=== PATIENT | male | born 1990 | race Caucasian/White ===

== ENCOUNTER 2018-07-11 16:32 | Emergency (ER) | payer BC ==
--- NOTE | 2018-07-11 17:03 | EDPHY ---
General Time Seen by Provider: 07/11/18 17:03 Narrative: CLINICAL IMPRESSION: Pyelonephritis ASSESSMENT/PLAN: Patient is a 28-year-old male with a significant medical history of hypertension who presents with dysuria, urinary urgency and right flank pain. Patient is afebrile, nontoxic appearing he is in no distress on arrival. His abdomen was soft mild tenderness to palpation in the generalized lower abdomen, no peritoneal signs and no evidence of a surgical abdomen; right CVA tenderness. CBC revealed mild leukocytosis of 11,000, vital signs were reviewed and there was no evidence of sepsis or serious bacterial illness. BMP revealed no significant metabolic abnormality or СВЕТЛАНА. UA with 10-15 RBCs, 50-182 WBCs with 1+ bacteria, urine sent for culture. Also obtained dirty urine for evaluation of GC; low suspicion as his last GC early June was negative. CT abdomen and pelvis w/out revealed mild proximal ureter dilatation on the right side without stranding, no evidence of stone; findings most suggestive of pyelonephritis. History and physical examination is most consistent with acute pyelonephritis. Patient was given 1 L of IV fluids, Rocephin, Dilaudid and Toradol with improvement of symptoms in the emergency department. At this time I have considered other etiologies of his pain to include appendicitis, cholecystitis, pancreatitis, perforated viscus, diverticulitis, hernia, AAA, mesenteric ischemia, herpes zoster or additional emergent intra-abdominal process however low clinical suspicion. Query possible vesicoureteral reflux as one possible etiology. On repeat examination and prior to discharge the patient reports that he is feeling better, his abdomen remained soft and nontender without evidence of a surgical abdomen. The patient is well established with their primary care provider although we do not have 1 listed, he was provided a Urology referral and he will call 1st thing Saturday morning to schedule an appointment. Ceftin for the next 7 days. Conservative return precautions discussed- patient will return for development of fever, persistent nausea or vomiting, signs of dehydration, chest pain, shortness of breath, abdominal pain, worsening or uncontrolled flank pain, urinary retention, dysuria, hematuria or for any other concerning symptom. The patient verbalizes understanding and he is in agreement with this plan. DIFFERENTIAL DX: Flank pain including but not limited to musculoskeletal causes, kidney stone, pyelonephritis, shingles, and intra-abdominal causes such as diverticulitis, appendicitis, chlamydia/gonorrhea, prostatitis, epididymitis, urinary tract obstruction, vesicoureteral reflux. ED COURSE: 1715: Case discussed with Dr. Shafer 1733: Discussed case with radiologist, mild dilatation of the proximal right ureter, no evidence of renal/ureteral calculi or other obstructive uropathy. Findings are most suggestive of pyelonephritis. 1835: On repeat exam the patient reports he is feeling much better, reports significant improvement of his discomfort. Results discussed with the patient. He is well established with his primary care provider although we do not have 1 listed, he will call to schedule follow-up. I will also provide a Urology referral. CHIEF COMPLAINT: Dysuria, urinary urgency and right flank pain HPI: Patient is a 28-year-old male with a significant medical history of hypertension who presents to the emergency department with urinary urgency, dysuria, cloudy urine and right lower back pain. Patient reports on June 13 he had an episode of lee blood in his urine, he was seen at urgent care and diagnosed with a urinary tract infection. He was sent home with antibiotic therapy, completed the course and felt better. This past Saturday he started to develop urinary urgency, dysuria as well as some mucus during his urinary stream. He describes his urine is cloudy. He is now experiencing some right flank pain that has been constant, he describes is achy in nature. He has never experienced anything like this before. He denies any fevers, chills, nausea or vomiting. He states that he has generalized abdominal discomfort, feels upset however denies any pain. He has had no testicular pain or swelling. Bowel movements have been regular and normal without melena or hematochezia. PMH: Hypertension Pertinent Past Surgical History: Denies Family History: Noncontributory Social History: Nonsmoker, denies illicit drug use REVIEW OF SYSTEMS: All other systems negative Constitutional: No fever, no chills, appetite change. Eyes: No discharge, vision change ENT: No sore throat, congestion, ear pain. Cardiovascular: No chest pain, no palpitations. Respiratory: No cough, no shortness of breath. Gastrointestinal: No abdominal pain, no vomiting, diarrhea. Genitourinary: Dysuria, urgency and right flank pain. Musculoskeletal: No back pain, joint swelling, joint pain, myalgias. Skin: No rashes, color change. Neurological: No headache, dizziness, weakness. PHYSICAL EXAM: General Appearance: Alert, no acute distress and not toxic-appearing. HENT: Normocephalic, atraumatic. Bilateral external ears are normal. Bilateral tympanic membranes are normal with pearly santana reflex. Nares are clear, mucosa is pink. Oropharynx is clear, uvula is midline. There is no tonsillar enlargement or exudate. The dentition is normal. Eyes: PERRLA, no acute vision change, nystagmus, swelling, discharge, pain or photosensitivity. Conjunctiva pink, no pallor or injection Neck: Supple, nontender, no lymphadenopathy, no midline pain, FROM, no meningismus. Respiratory: There are no retractions, lungs are clear to auscultation. Cardiac: Regular rate and rhythm, no murmurs or gallops. Gastrointestinal: Abdomen is soft, bowel sounds normal, no masses/hernia. He has diffuse lower abdominal tenderness to palpation without rigidity, guarding or focal peritoneal findings. Right CVA tenderness. Neurological: Alert and oriented x 3, CN 2-12 grossly intact, normal gait no ataxia, DTR's intact, normal sensation and strength Skin: Warm, dry, no rashes, no nodules on palpation. Musculoskeletal: Extremities are symmetrical, full range of motion, no tenderness, deformity, swelling, or erythema. Psychiatric: Patient is oriented X 3, there is no agitation. MEDICAL DECISION MAKING: Patient was seen independently. Secondary supervising physician at time of evaluation was Dr. Shafer, he did not evaluate this patient. Diagnosis: Right flank pain. New, requires workup Summary: See Assessment and Plan for summary of ED visit Clinical lab tests: ordered / reviewed. Independent visualization of images, tracing, or specimens: Yes. Decision to obtain medical records or history from someone other than the patient: No Review / Summarize previous medical records: Yes Discussed patient with another provider: Yes, Dr. Shafer Patient Progress: Stable, discharged. - Diagnostics Imaging Results: Imaging Impressions Abdomen/Pelvis CT 07/11/18 17:11 Impression: Negative non-contrast CT examination of the urinary system. Results called to Chloe Nickerson PA-C, at 5:30 PM. Attention: This CT examination is specifically designed to evaluate patients who are clinically suspected of having acute obstructive uropathy. This examination does not use radiographic contrast, and as such, provides only a limited evaluation of the abdomen, pelvis and retroperitoneum. If there is further clinical suspicion for pathological conditions other than obstructive uropathy, a complete CT evaluation of the abdomen and pelvis utilizing intravenous, oral, and rectal contrast should be considered. - History Smoking Status: Never smoked - Objective Vital Signs: Initial Vital Signs Temperature (C) 36.7 C 07/11/18 16:44 Heart Rate 79 07/11/18 16:44 Respiratory Rate 16 07/11/18 16:44 Blood Pressure 131/112 H 07/11/18 16:44 O2 Sat (%) 97 07/11/18 16:44 O2 Delivery Mode Room Air Allergies/Adverse Reactions: amoxicillin Allergy (Verified 07/11/18 16:48) Home Medications: Medication Instructions Recorded Cefuroxime Axetil [Ceftin (*)] 500 mg PO BID 10 Days tab 07/11/18 Lisinopril 07/11/18 Laboratory Results: Laboratory Results 07/11/18 17:35 07/11/18 17:35 07/11/18 07/11/18 07/11/18 17:35 17:35 17:30 WBC 11.01 10^3/uL H 10^3/uL (3.80-9.50) RBC 4.72 10^6/uL 10^6/uL (4.40-6.38) Hgb 14.4 g/dL g/dL (13.7-17.5) Hct 42.3 % % (40.0-51.0) MCV 89.6 fL fL (81.5-99.8) MCH 30.5 pg pg (27.9-34.1) MCHC 34.0 g/dL g/dL (32.4-36.7) RDW 12.7 % % (11.5-15.2) Plt Count 212 10^3/uL 10^3/uL (150-400) MPV 9.2 fL fL (8.7-11.7) Neut % (Auto) 68.7 % % (39.3-74.2) Lymph % (Auto) 19.9 % % (15.0-45.0) [place] % (Auto) 9.7 % % (4.5-13.0) Eos % (Auto) 0.9 % % (0.6-7.6) Baso % (Auto) 0.5 % % (0.3-1.7) Nucleat RBC Rel Count 0.0 % % (0.0-0.2) Absolute Neuts (auto) 7.57 10^3/uL H 10^3/uL (1.70-6.50) Absolute Lymphs (auto) 2.19 10^3/uL 10^3/uL (1.00-3.00) Absolute Monos (auto) 1.07 10^3/uL H 10^3/uL (0.30-0.80) Absolute Eos (auto) 0.10 10^3/uL 10^3/uL (0.03-0.40) Absolute Basos (auto) 0.05 10^3/uL 10^3/uL (0.02-0.10) Absolute Nucleated RBC 0.00 10^3/uL 10^3/uL (0-0.01) Immature Gran % 0.3 % % (0.0-1.1) Immature Gran # 0.03 10^3/uL 10^3/uL (0.00-0.10) Sodium 136 mEq/L mEq/L (135-145) Potassium 4.5 mEq/L mEq/L (3.5-5.2) Chloride 101 mEq/L mEq/L (97-110) Carbon Dioxide 23 mEq/l mEq/l (22-31) Anion Gap 12 mEq/L mEq/L (6-14) BUN 13 mg/dL mg/dL (7-23) Creatinine 0.7 mg/dL mg/dL (0.7-1.3) Estimated GFR > 60 Glucose 81 mg/dL mg/dL (70-100) Calcium 9.8 mg/dL mg/dL (8.5-10.4) Urine Color Urine Appearance Urine pH Ur Specific [place] Urine Protein Urine Ketones Urine Blood Urine Nitrate Urine Bilirubin Urine Urobilinogen Ur Leukocyte Esterase Urine RBC Urine WBC Ur Epithelial Cells Urine Bacteria Urine Glucose N.gonorrhoeae RNA (TMA) Pending 07/11/18 17:00 WBC RBC Hgb Hct MCV MCH MCHC RDW Plt Count MPV Neut % (Auto) Lymph % (Auto) [place] % (Auto) Eos % (Auto) Baso % (Auto) Nucleat RBC Rel Count Absolute Neuts (auto) Absolute Lymphs (auto) Absolute Monos (auto) Absolute Eos (auto) Absolute Basos (auto) Absolute Nucleated RBC Immature Gran % Immature Gran # Sodium Potassium Chloride Carbon Dioxide Anion Gap BUN Creatinine Estimated GFR Glucose Calcium Urine Color PALE YELLOW Urine Appearance HAZY Urine pH 6.0 (5.0-7.5) Ur Specific [place] 1.005 (1.002-1.030) Urine Protein NEGATIVE (NEGATIVE) Urine Ketones NEGATIVE (NEGATIVE) Urine Blood 2+ H (NEGATIVE) Urine Nitrate NEGATIVE (NEGATIVE) Urine Bilirubin NEGATIVE (NEGATIVE) Urine Urobilinogen NEGATIVE EU EU (0.2-1.0) Ur Leukocyte Esterase 3+ H (NEGATIVE) Urine RBC 10-15 /hpf H /hpf (0-3) Urine WBC 50-182 /hpf H /hpf (0-3) Ur Epithelial Cells NONE SEEN /lpf /lpf (NONE-1+) Urine Bacteria 1+ /hpf H /hpf (NONE SEEN) Urine Glucose NEGATIVE (NEGATIVE) N.gonorrhoeae RNA (TMA) Medications Given: Discontinued Medications Hydromorphone HCl (Dilaudid) 0.5 mg IVP EDNOW ONE Stop: 07/11/18 17:12 Last Admin: 07/11/18 17:52 Dose: 0.5 mg Sodium Chloride (Ns) 1,000 mls @ 0 mls/hr IV ONCE ONE PRN Reason: Wide Open Stop: 07/11/18 17:12 Last Admin: 07/11/18 17:49 Dose: 1,000 mls Ceftriaxone Sodium/Dextrose (Rocephin 1 Gm (Premix)) 50 mls @ 100 mls/hr IV EDNOW ONE PRN Reason: Protocol Stop: 07/11/18 19:10 Last Admin: 07/11/18 18:49 Dose: 50 mls Ketorolac Tromethamine (Toradol) 30 mg IVP EDNOW ONE Stop: 07/11/18 18:42 Last Admin: 07/11/18 18:49 Dose: 30 mg Departure - Departure Disposition: Home, Routine, Self-Care Clinical Impression: Pyelonephritis Condition: Good Instructions: Urinary Tract Infection in Men (ED) Additional Instructions: DISCHARGE INSTRUCTIONS FROM YOUR DOCTOR Thank you for visiting our emergency department today. Please keep in mind that discharge from the emergency department does not mean that there is nothing wrong - it simply means that we have not identified an emergency condition that requires further evaluation or treatment in the hospital. You should always plan to follow up with primary care for re-evaluation of your condition in the next 2-3 days. You have been provided a Urology referral, please call on Saturday to schedule an appointment next week for repeat examination. Rest, push non-diuretic, non-caffeinated fluids, clear liquid diet, then a BRAT diet (bananas, rice, applesauce, toast), then slowly advance diet to normal. Attempt small frequent meals. Urinate regularly. Urinate after intercourse if sexually active. Ceftin antibiotic as prescribed every 12 hours. You received your first dose here today. Next dose in 12 hours. Consider over the counter probiotics to help prevent antibiotic associated diarrhea. As discussed, a urine culture is pending at the lab. Your antibiotic may need to be changed. If it does, you will be contacted in the next 3-5 days by phone. Be sure we have a working phone number. Schedule a follow-up appointment with your primary care physician in the next 1- 2 days for re-evaluation. Bring a copy of your test results with you to that appointment. Return for increased or unmanageable pain, development of abdominal pain, groin pain, pelvic pain, back pain, flank pain, fever, chills, recurrent vomiting, vomiting blood or coffee grounds, diarrhea, constipation, bloody stool, black tarry stools, burning or pain with urination, bloody urine, inability to urinate , decreased urine output or other signs of dehydration, development of fever, chills, dizziness, weakness, fainting, difficulty breathing or swallowing, chest pain, coughing, coughing up blood, ankle swelling, or for any other new, worsening or worrisome symptoms. People present with illnesses and injuries in different ways, and it is always possible that we have missed something. You may always return for re-evaluation if symptoms worsen or if they are not improving or if you develop new/different symptoms. Again, thank you for choosing our emergency department. We hope that you feel better. Referrals: NONE *PRIMARY CARE P,. [Primary Care Provider] - 2-3 days without fail Dinesh Mcneill MD [Medical Doctor] - 2-3 days, call for appt. Prescriptions: Cefuroxime Axetil [Ceftin (*)] 500 mg PO BID 10 Days tab
[2018-07-11] MEDS ORDERED: NS 1,000 ML IV ONE (17:11)
[2018-07-11] MEDS ORDERED: HYDROmorphONE/DILAUDID 2 MG/ML INJ IVP ONE (17:11)
[2018-07-11 17:51] LABS: PLATELET COUNT 212 10^3/uL (150-400)
[2018-07-11] MEDS ORDERED: KETOROLAC 30 MG/1 ML SDV IVP ONE (18:41)
[2018-07-11 18:51] VITALS: BP 134/97
== END 2018-07-11 19:16 | disposition home or self-care (01) ==
DX: N12 Tubulo-interstitial nephritis, not specified as acute or chronic (principal)
CPT/HCPCS: 96374; J0696; J1170; J1885

== ENCOUNTER → 2018-08-11 | Outpatient (CLI) | payer BC ==
[~2018-08-11] MED LIST: FUROSEMIDE 40 MG/4 ML VIAL ONE
== END ==
LOC: FIMAGING 08:18
PROVIDERS: ATTEND Specialist
DX: R10.9 Unspecified abdominal pain (principal)
CPT/HCPCS: 78708; A9562; J1940